=== PATIENT | male | born 1970 | race Caucasian/White ===

== ENCOUNTER 2018-11-27 06:35 | Emergency (ER) | payer SELFPAY ==
[2018-11-27] MEDS: ONDANSETRON 4 MG INJ IV (06:58)
[2018-11-27] MEDS: KETOROLAC 15 MG INJ IV (06:58)
[2018-11-27] MEDS: HYDROmorphONE 1 MG/ML SYG IV (06:59)
[2018-11-27 07:09] LABS: ADD MAN DIFF? NO
[2018-11-27 07:11] LABS: WHITE BLOOD COUNT 8.9 10^3/ul (4.8-10.8)
[2018-11-27 07:11] LABS: BASOPHIL # 0.1 10^3/ul (0.0-0.1); EOSINOPHILS # 0.5 10^3/ul (0.0-0.5); EOSINOPHILS % 5.3 % (0.0-7.0); HEMATOCRIT 46.2 % (42.0-52.0); HEMOGLOBIN 15.2 g/dl (14.0-18.0); LYMPHOCYTES # 1.4 10^3/ul (0.8-2.9); LYMPHOCYTES % 16.1 % (15.0-51.0); MEAN CORPUSCULAR HEMOGLOBIN 30.8 pg (29.0-33.0); MEAN CORPUSCULAR HGB CONC 32.9 g/dl (32.0-37.0); MEAN CORPUSCULAR VOLUME 93.5 fl (82.0-101.0); MEAN PLATELET VOLUME 10.2 fl (7.4-10.4); MONOCYTE # 0.5 10^3/ul (0.3-0.9); NEUTROPHIL # 6.3 10^3/ul (1.6-7.5); PLATELET COUNT 246 10^3/UL (140-415); RED BLOOD COUNT 4.94 10^6/ul (4.70-6.10); RED CELL DISTRIBUTION WIDTH 12.4 % (11.5-14.5)
[2018-11-27 07:30] LABS: ALANINE AMINOTRANSFERASE 33 IU/L (13-69); ALBUMIN 4.6 g/dl (3.3-4.9); ALBUMIN/GLOBULIN RATIO 1.27; ALKALINE PHOSPHATASE 106 IU/L (42-121); ANION GAP 13 (5-13); ASPARTATE AMINO TRANSFERASE 32 IU/L (15-46); BILIRUBIN,INDIRECT 0.5 mg/dl (0-1.1); BILIRUBIN,TOTAL 0.5 mg/dl (0.2-1.3); BLOOD UREA NITROGEN 16 mg/dl (7-20); CALCIUM 9.5 mg/dl (8.4-10.2); CARBON DIOXIDE 25 mmol/L (21-31); CHLORIDE 106 mmol/L (97-110); CREATININE 0.97 mg/dl (0.61-1.24); Estimated GFR > 60 mL/min (>60); GLUCOSE 105 mg/dl (70-220); LIPASE 72 U/L (23-300); POTASSIUM 3.8 mmol/L (3.5-5.1); SODIUM 144 mmol/L (135-144); TOTAL PROTEIN 8.2 g/dl (6.1-8.1)
[2018-11-27 07:41] LABS: ADD UMIC YES; UR ASCORBIC ACID NEGATIVE (NEGATIVE); UR BILIRUBIN (Dip) NEGATIVE (NEGATIVE); UR BLOOD (Dip) NEGATIVE (NEGATIVE); UR CLARITY CLEAR (CLEAR); UR COLOR YELLOW (YELLOW); UR GLUCOSE (Dip) NEGATIVE (NEGATIVE); UR KETONES (Dip) NEGATIVE (NEGATIVE); UR LEUKOCYTE ESTERASE (Dip) NEGATIVE Leu/ul (NEGATIVE); UR MUCUS FEW /HPF (NONE SEEN); UR NITRITE (Dip) NEGATIVE (NEGATIVE); UR RBC 0 /HPF (0-5); UR SPECIFIC GRAVITY (Dip) 1.026 (1.003-1.030); UR SQUAMOUS EPITHELIAL CELL FEW /HPF (FEW); UR TOTAL PROTEIN (Dip) 1+ mg/dl (NEGATIVE); UR UROBILINOGEN (Dip) 1+ mg/dL (NEGATIVE); UR WBC 2 /HPF (0-5)
== END 2018-11-27 08:02 | disposition home or self-care (01) ==
LOC: E/R 06:35
DX: R10.13 Epigastric pain (principal)
CPT/HCPCS: 36415; 74176; 80053; 81001; 83690; 85025; 96374; 96375; 99285-25

== ENCOUNTER 2018-11-30 21:22 | Emergency (ER) | payer SELFPAY ==
[2018-11-30 21:47] LABS: ADD MAN DIFF? NO
[2018-11-30 21:49] LABS: BASOPHIL # 0.1 10^3/ul (0.0-0.1); BASOPHILS % 0.5 % (0.0-2.0); EOSINOPHILS # 0.6 10^3/ul (0.0-0.5); HEMATOCRIT 42.5 % (42.0-52.0); HEMOGLOBIN 14.2 g/dl (14.0-18.0); LYMPHOCYTES # 1.9 10^3/ul (0.8-2.9); LYMPHOCYTES % 14.6 % (15.0-51.0); MEAN CORPUSCULAR HEMOGLOBIN 31.2 pg (29.0-33.0); MEAN CORPUSCULAR HGB CONC 33.4 g/dl (32.0-37.0); MEAN CORPUSCULAR VOLUME 93.4 fl (82.0-101.0); MEAN PLATELET VOLUME 10.2 fl (7.4-10.4); MONOCYTE # 1.4 10^3/ul (0.3-0.9); MONOCYTES % 11.1 % (0.0-11.0); NEUTROPHIL # 8.8 10^3/ul (1.6-7.5); NEUTROPHILS % 68.3 % (39.0-77.0); PLATELET COUNT 226 10^3/UL (140-415); RED BLOOD COUNT 4.55 10^6/ul (4.70-6.10); RED CELL DISTRIBUTION WIDTH 11.9 % (11.5-14.5)
[2018-11-30 21:49] LABS: WHITE BLOOD COUNT 12.9 10^3/ul (4.8-10.8)
[2018-11-30] MEDS: LORAZEPAM 2 MG INJ IV (21:49)
[2018-11-30] MEDS: METOCLOPRAMIDE 10 MG INJ IV (21:49)
[2018-11-30] MEDS: KETOROLAC 30 MG INJ IV (21:49)
[2018-11-30] MEDS: LIDOCAINE/MYLANTA 40 ML BTL PO (21:53)
[2018-11-30 22:08] LABS: ALANINE AMINOTRANSFERASE 21 IU/L (13-69); ALBUMIN 4.3 g/dl (3.3-4.9); ALBUMIN/GLOBULIN RATIO 1.13; ALKALINE PHOSPHATASE 92 IU/L (42-121); ANION GAP 10 (5-13); ASPARTATE AMINO TRANSFERASE 22 IU/L (15-46); BILIRUBIN,INDIRECT 0.5 mg/dl (0-1.1); BILIRUBIN,TOTAL 0.5 mg/dl (0.2-1.3); BLOOD UREA NITROGEN 13 mg/dl (7-20); CALCIUM 9.3 mg/dl (8.4-10.2); CARBON DIOXIDE 28 mmol/L (21-31); CHLORIDE 103 mmol/L (97-110); CREATININE 1.12 mg/dl (0.61-1.24); Estimated GFR > 60 mL/min (>60); GLUCOSE 129 mg/dl (70-220); LIPASE 45 U/L (23-300); SODIUM 141 mmol/L (135-144); TOTAL PROTEIN 8.1 g/dl (6.1-8.1)
[2018-11-30 22:32] LABS: ADD UMIC YES; UR ASCORBIC ACID NEGATIVE (NEGATIVE); UR BACTERIA FEW /HPF (NONE SEEN); UR BILIRUBIN (Dip) NEGATIVE (NEGATIVE); UR BLOOD (Dip) NEGATIVE (NEGATIVE); UR CLARITY CLEAR (CLEAR); UR COLOR YELLOW (YELLOW); UR GLUCOSE (Dip) NEGATIVE (NEGATIVE); UR KETONES (Dip) TRACE mg/dL (NEGATIVE); UR LEUKOCYTE ESTERASE (Dip) NEGATIVE Leu/ul (NEGATIVE); UR MUCUS FEW /HPF (NONE SEEN); UR NITRITE (Dip) NEGATIVE (NEGATIVE); UR RBC 2 /HPF (0-5); UR SPECIFIC GRAVITY (Dip) 1.029 (1.003-1.030); UR TOTAL PROTEIN (Dip) 1+ mg/dl (NEGATIVE); UR UROBILINOGEN (Dip) 2+ mg/dL (NEGATIVE); UR WBC 2 /HPF (0-5)
== END 2018-11-30 23:59 | disposition home or self-care (01) ==
LOC: E/R 21:22
DX: K83.9 Disease of biliary tract, unspecified (principal); Z87.891 Personal history of nicotine dependence
CPT/HCPCS: 76705; 80053; 81001; 83690; 85025; 93005; 96374; 96375; 99285-25

== ENCOUNTER 2018-12-01 00:34 | Inpatient (IN) | payer MEDICAID ==
[2018-12-01] MEDS: ONDANSETRON 4 MG INJ IV (01:14)
[2018-12-01] MEDS: HYDROmorphONE 2 MG/ML SYG IV ×2 (01:14→07:50)
[2018-12-01] MEDS ORDERED: NACL 0.9% 3 ML SYG IV (03:30)
[2018-12-01] MEDS ORDERED: ONDANSETRON 4 MG INJ IV ×3 (03:30→11:30)
[2018-12-01] MEDS: morphine 2 MG INJ IV (03:42)
[2018-12-01] MEDS: DEXTROSE 5%-0.45% NACL 1,000 ML IV (03:42)
[2018-12-01] MEDS: KETOROLAC 30 MG INJ IV ×2 (04:26→18:10)
[2018-12-01 05:00] LABS: ADD MAN DIFF? NO
[2018-12-01 05:04] LABS: BASOPHIL # 0.1 10^3/ul (0.0-0.1); BASOPHILS % 0.4 % (0.0-2.0); EOSINOPHILS % 0.2 % (0.0-7.0); HEMATOCRIT 43.2 % (42.0-52.0); HEMOGLOBIN 14.1 g/dl (14.0-18.0); LYMPHOCYTES # 0.8 10^3/ul (0.8-2.9); LYMPHOCYTES % 6.2 % (15.0-51.0); MEAN CORPUSCULAR HEMOGLOBIN 31.1 pg (29.0-33.0); MEAN CORPUSCULAR HGB CONC 32.6 g/dl (32.0-37.0); MEAN CORPUSCULAR VOLUME 95.2 fl (82.0-101.0); MEAN PLATELET VOLUME 10.5 fl (7.4-10.4); MONOCYTE # 1.4 10^3/ul (0.3-0.9); MONOCYTES % 11.2 % (0.0-11.0); NEUTROPHIL # 9.9 10^3/ul (1.6-7.5); NEUTROPHILS % 81.3 % (39.0-77.0); PLATELET COUNT 223 10^3/UL (140-415); RED BLOOD COUNT 4.54 10^6/ul (4.70-6.10); RED CELL DISTRIBUTION WIDTH 11.9 % (11.5-14.5)
[2018-12-01 05:04] LABS: WHITE BLOOD COUNT 12.1 10^3/ul (4.8-10.8)
[2018-12-01] MEDS: PIPER-TAZO 3.375 GM IV (PMX) 100 ML IVPB ×3 (05:24→18:04)
[2018-12-01 05:54] LABS: ALANINE AMINOTRANSFERASE 19 IU/L (13-69); ALBUMIN 4.2 g/dl (3.3-4.9); ALKALINE PHOSPHATASE 92 IU/L (42-121); ANION GAP 10 (5-13); ASPARTATE AMINO TRANSFERASE 34 IU/L (15-46); BILIRUBIN,INDIRECT 0.8 mg/dl (0-1.1); BILIRUBIN,TOTAL 0.8 mg/dl (0.2-1.3); BLOOD UREA NITROGEN 13 mg/dl (7-20); CALCIUM 9.1 mg/dl (8.4-10.2); CARBON DIOXIDE 27 mmol/L (21-31); CHLORIDE 102 mmol/L (97-110); CREATININE 0.81 mg/dl (0.61-1.24); Estimated GFR > 60 mL/min (>60); GLUCOSE 152 mg/dl (70-220); LIPASE 24 U/L (23-300); POTASSIUM 4.1 mmol/L (3.5-5.1); SODIUM 139 mmol/L (135-144); TOTAL PROTEIN 7.7 g/dl (6.1-8.1)
[2018-12-01] MEDS: FAMOTIDINE 20 MG INJ IV ×2 (09:00→20:35)
[2018-12-01] MEDS ORDERED: LIDOCAINE 2% (SDV) 5 ML INJ (10:09)
[2018-12-01] MEDS ORDERED: FENTAnyl 50 MCG/ML VIAL (10:09)
[2018-12-01] MEDS ORDERED: ROCURONIUM 50 MG INJ (10:09)
[2018-12-01] MEDS ORDERED: PROPOFOL 20 ML (10:09)
[2018-12-01] MEDS ORDERED: DEXAMETHASONE 4 MG/ML 5 ML INJ (10:11)
[2018-12-01] MEDS ORDERED: ONDANSETRON 4 MG INJ (10:11)
[2018-12-01] MEDS: BUPIVACAINE 0.5%/EPI (SDV) 30 ML INJ (10:37)
[2018-12-01] MEDS: LIDOCAINE 1% (MPF) 30 ML INJ (10:37)
[2018-12-01] MEDS ORDERED: SUGAMMADEX SODIUM 200 MG/2 ML VIAL IV (11:12)
[2018-12-01] MEDS ORDERED: FENTAnyl 50 MCG/ML VIAL IV ×3 (11:30)
[2018-12-01] MEDS ORDERED: DIPHENHYDRAMINE 50 MG INJ IV (11:30)
[2018-12-01] MEDS ORDERED: MIDAZOLAM 1 MG/ML 2 ML INJ IV (11:30)
[2018-12-01] MEDS ORDERED: METOCLOPRAMIDE 10 MG INJ IV (11:30)
[2018-12-01] MEDS ORDERED: HYDROmorphONE 1 MG/5 ML IV SYRINGE IV ×3 (11:30)
[2018-12-01] MEDS ORDERED: morphine 4 MG/ML VIAL IV (11:30)
[2018-12-01] MEDS ORDERED: ALBUTEROL 0.083% (NEB) 2.5 MG/3 ML AMP HHN (11:30)
[2018-12-01] MEDS ORDERED: EPHEDrine SULFATE 50 MG/5 ML SYG IV (11:30)
[2018-12-01] MEDS ORDERED: KETOROLAC 30 MG INJ IV (11:30)
[2018-12-01] MEDS ORDERED: ACETAMINOPHEN 325 MG TAB PO (11:30)
[2018-12-01] MEDS ORDERED: hydrALAzine 20 MG INJ IV (11:30)
[2018-12-01] MEDS ORDERED: MEPERIDINE 25 MG INJ IV (11:30)
[2018-12-01] MEDS ORDERED: LABETALOL HCL 20MG INJ IV (11:30)
[2018-12-01] MEDS: D5-NS + KCL 20 MEQ 1,000 ML IV ×2 (13:33→20:36)
[2018-12-02] MEDS: morphine 2 MG INJ IV (00:12)
[2018-12-02] MEDS: PIPER-TAZO 3.375 GM IV (PMX) 100 ML IVPB ×4 (00:14→17:46)
[2018-12-02] MEDS: D5-NS + KCL 20 MEQ 1,000 ML IV ×2 (00:17→12:22)
[2018-12-02 05:15] LABS: ADD MAN DIFF? NO
[2018-12-02 05:33] LABS: BASOPHILS % 0.1 % (0.0-2.0); HEMATOCRIT 38.7 % (42.0-52.0); HEMOGLOBIN 12.9 g/dl (14.0-18.0); LYMPHOCYTES # 0.8 10^3/ul (0.8-2.9); LYMPHOCYTES % 6.9 % (15.0-51.0); MEAN CORPUSCULAR HEMOGLOBIN 31.4 pg (29.0-33.0); MEAN CORPUSCULAR HGB CONC 33.3 g/dl (32.0-37.0); MEAN CORPUSCULAR VOLUME 94.2 fl (82.0-101.0); MEAN PLATELET VOLUME 10.8 fl (7.4-10.4); MONOCYTE # 1.2 10^3/ul (0.3-0.9); MONOCYTES % 9.6 % (0.0-11.0); NEUTROPHIL # 9.9 10^3/ul (1.6-7.5); NEUTROPHILS % 82.7 % (39.0-77.0); PLATELET COUNT 220 10^3/UL (140-415); RED BLOOD COUNT 4.11 10^6/ul (4.70-6.10)
[2018-12-02 05:47] LABS: ANION GAP 7 (5-13); BLOOD UREA NITROGEN 16 mg/dl (7-20); CALCIUM 8.7 mg/dl (8.4-10.2); CARBON DIOXIDE 23 mmol/L (21-31); CHLORIDE 109 mmol/L (97-110); CREATININE 0.77 mg/dl (0.61-1.24); Estimated GFR > 60 mL/min (>60); GLUCOSE 132 mg/dl (70-220); POTASSIUM 4.8 mmol/L (3.5-5.1); SODIUM 139 mmol/L (135-144)
[2018-12-02] MEDS: ENOXAPARIN 40 MG/0.4 ML SYG SC (06:16)
[2018-12-02] MEDS: KETOROLAC 30 MG INJ IV ×2 (06:18→21:02)
[2018-12-02 08:32] LABS: ALANINE AMINOTRANSFERASE 35 IU/L (13-69); ALBUMIN 3.2 g/dl (3.3-4.9); ALKALINE PHOSPHATASE 63 IU/L (42-121); ANION GAP 8 (5-13); ASPARTATE AMINO TRANSFERASE 26 IU/L (15-46); BILIRUBIN,INDIRECT 0.6 mg/dl (0-1.1); BILIRUBIN,TOTAL 0.6 mg/dl (0.2-1.3); BLOOD UREA NITROGEN 19 mg/dl (7-20); CALCIUM 8.7 mg/dl (8.4-10.2); CARBON DIOXIDE 23 mmol/L (21-31); CHLORIDE 109 mmol/L (97-110); CREATININE 0.85 mg/dl (0.61-1.24); Estimated GFR > 60 mL/min (>60); GLUCOSE 127 mg/dl (70-220); POTASSIUM 4.6 mmol/L (3.5-5.1); SODIUM 140 mmol/L (135-144); TOTAL PROTEIN 6.4 g/dl (6.1-8.1)
[2018-12-02] MEDS: FAMOTIDINE 20 MG INJ IV ×2 (09:35→21:01)
[2018-12-02] MEDS: HYDROCODONE/APAP (5/325) TAB PO ×2 (09:35→17:46)
[2018-12-03 05:27] LABS: ADD MAN DIFF? NO
[2018-12-03 05:34] LABS: BASOPHILS % 0.3 % (0.0-2.0); EOSINOPHILS # 0.1 10^3/ul (0.0-0.5); EOSINOPHILS % 1.2 % (0.0-7.0); HEMATOCRIT 35.7 % (42.0-52.0); HEMOGLOBIN 11.6 g/dl (14.0-18.0); LYMPHOCYTES # 2.2 10^3/ul (0.8-2.9); LYMPHOCYTES % 24.6 % (15.0-51.0); MEAN CORPUSCULAR HEMOGLOBIN 30.9 pg (29.0-33.0); MEAN CORPUSCULAR HGB CONC 32.5 g/dl (32.0-37.0); MEAN CORPUSCULAR VOLUME 95.2 fl (82.0-101.0); MEAN PLATELET VOLUME 10.8 fl (7.4-10.4); MONOCYTE # 0.9 10^3/ul (0.3-0.9); MONOCYTES % 9.4 % (0.0-11.0); NEUTROPHIL # 5.8 10^3/ul (1.6-7.5); NEUTROPHILS % 63.9 % (39.0-77.0); PLATELET COUNT 219 10^3/UL (140-415); RED BLOOD COUNT 3.75 10^6/ul (4.70-6.10); RED CELL DISTRIBUTION WIDTH 12.5 % (11.5-14.5)
[2018-12-03] MEDS: PIPER-TAZO 3.375 GM IV (PMX) 100 ML IVPB ×4 (06:10→18:00)
[2018-12-03 06:13] LABS: PHOSPHORUS 3.7 mg/dl (2.5-4.9)
[2018-12-03 06:13] LABS: MAGNESIUM 2.2 mg/dl (1.7-2.5)
[2018-12-03] MEDS: ENOXAPARIN 40 MG/0.4 ML SYG SC (06:13)
[2018-12-03 06:25] LABS: ALANINE AMINOTRANSFERASE 38 IU/L (13-69); ALBUMIN/GLOBULIN RATIO 1.03; ALKALINE PHOSPHATASE 63 IU/L (42-121); ANION GAP 8 (5-13); ASPARTATE AMINO TRANSFERASE 35 IU/L (15-46); BILIRUBIN,INDIRECT 0.3 mg/dl (0-1.1); BILIRUBIN,TOTAL 0.3 mg/dl (0.2-1.3); BLOOD UREA NITROGEN 18 mg/dl (7-20); CALCIUM 8.5 mg/dl (8.4-10.2); CARBON DIOXIDE 24 mmol/L (21-31); CHLORIDE 108 mmol/L (97-110); Estimated GFR > 60 mL/min (>60); GLUCOSE 98 mg/dl (70-220); POTASSIUM 4.2 mmol/L (3.5-5.1); SODIUM 140 mmol/L (135-144); TOTAL PROTEIN 5.9 g/dl (6.1-8.1)
[2018-12-03] MEDS: FAMOTIDINE 20 MG INJ IV (08:38)
[2018-12-03] MEDS: HYDROCODONE/APAP (5/325) TAB PO ×2 (08:49→18:30)
[2018-12-03] MEDS: KETOROLAC 30 MG INJ IV (12:58)
[2018-12-03] MEDS: D5-NS + KCL 20 MEQ 1,000 ML IV ×2 (13:15)
== END 2018-12-03 19:30 | disposition home or self-care (01) | DRG 419 ==
LOC: E/R 00:34 → MS1 00:46
PROC: 0FT44ZZ Resection of Gallbladder, Percutaneous Endoscopic Approach (ICD-10-PCS; principal; 2018-12-01 10:00)
DX: K80.00 Calculus of gallbladder with acute cholecystitis without obstruction (principal); K82.A1 Gangrene of gallbladder in cholecystitis; F14.90 Cocaine use, unspecified, uncomplicated; Z72.89 Other problems related to lifestyle; Z87.891 Personal history of nicotine dependence
CPT/HCPCS: 80048; 80053; 83690; 83735; 84100; 85025; 88304; 99285-25